=== PATIENT | female | born 1980 | race Hispanic/Latino ===

== ENCOUNTER 2017-07-04 11:01 | Inpatient (IN) | payer BC ==
[~2017-07-04] VITALS: Ht 152.4 cm; Wt 101.2 kg
[2017-07-17] MEDS ORDERED: PROMETHAZINE HCL 25 MG/ML 1ML AMPULE IM PRN (17:45)
[2017-07-17] MEDS ORDERED: NALOXONE HCL 0.4 MG/1 ML ML IV PRN (18:00)
[2017-07-17] MEDS ORDERED: LACTATED RINGERS 500 ML 500 ML IV PRN (18:00)
[2017-07-17] MEDS ORDERED: EPHEDRINE SULFATE 50 MG/ML AMPULE IVP PRN (18:00)
[2017-07-17] MEDS ORDERED: AMPICILLIN 2GM+NS 100ML 100 ML IV SCH (18:15)
[2017-07-17 18:23] LABS: HEMATOCRIT 37.2 % (36-48); MEAN CORPUSCULAR HEMOGLOBIN 27.2 pg (27.0-33.0); MEAN CORPUSCULAR HGB CONC 33.6 g/dL (32.0-36.0); MEAN CORPUSCULAR VOLUME 81.1 fL (79-99); PLATELET COUNT (AUTO) 285 K/uL (130-400); RED BLOOD CELL COUNT(AUTO) 4.59 MIL/uL (4.00-5.50); RED CELL DISTRIBUTION WIDTH 16.9 % (11.0-15.5); WHITE BLOOD COUNT (AUTO) 11.9 K/uL (4.8-10.8)
[2017-07-17 18:26] LABS: APPEARANCE,URINE Clear (CLEAR); BILIRUBIN,URINE Negative (NEGATIVE); COLOR,URINE Yellow (YELLOW); GLUCOSE, URINE (UA) Negative (NEGATIVE); KETONES,URINE Negative (NEGATIVE); LEUKOCYTE ESTERASE ,URINE Trace (NEGATIVE); NITRATE,URINE Negative (NEGATIVE); OCCULT BLOOD,URINE Negative (NEGATIVE); PH,URINE 6.5 (5.0-8.0); PROTEIN,URINE Negative (NEGATIVE)
[2017-07-17 18:48] LABS: BACTERIA,URINE Few /HPF (None Seen); RBC,URINE 0-1 /HPF (0-1)
[2017-07-17 18:49] LABS: MUCUS,URINE Rare LPF (None Seen); SQUAMOUS EPITHELIAL CELL,UR Few /HPF (0-2)
[2017-07-17] MEDS ORDERED: DINOPROSTONE 10 MG VAGINAL SUPP VG SCH (19:00)
[2017-07-17] MEDS: MISOPROSTOL 100 MCG TABLET VG PRN ×2 (19:57→23:35)
[2017-07-17] MEDS ORDERED: AMPICILLIN 1GM+NS 50ML 50 ML IV ONE (23:18)
[2017-07-17] MEDS: MEPERIDINE-PF 50 MG/ML SYG IVP PRN (23:35)
[2017-07-17] MEDS: LACTATED RINGERS 1000ML 1,000 ML IV PRN (23:36)
[2017-07-18] MEDS ORDERED: AMPICILLIN 1GM+NS 50ML 50 ML IV ONE ×2 (04:09→08:20)
[2017-07-18] MEDS ORDERED: OXYTOCIN 10 USP UNITS/ML ONE (05:53)
[2017-07-18] MEDS: LACTATED RINGERS 1000ML 1,000 ML IV PRN ×2 (06:24→23:50)
[2017-07-18] MEDS: OXYTOCIN 10 USP UNITS/ML 20 UNIT in LACTATED RINGERS 1000ML 1,000 ML IV SCH (06:24)
[2017-07-18] MEDS ORDERED: AMPICILLIN 1GM+NS 50ML 50 ML IV SCH (08:30)
[2017-07-18] MEDS ORDERED: INSULIN HUMULIN R 100 UNIT/ML 3ML SQ SCH (09:30)
[2017-07-18] MEDS: AMPICILLIN 1GM+NS 50ML 50 ML IV SCH ×4 (11:57→23:50)
[2017-07-18] MEDS ORDERED: DINOPROSTONE 10 MG VAGINAL SUPP EC SCH (18:30)
[2017-07-19] MEDS: AMPICILLIN 1GM+NS 50ML 50 ML IV SCH ×2 (03:52→08:07)
[2017-07-19] MEDS ORDERED: OXYTOCIN 10 USP UNITS/ML ONE ×2 (05:28→20:29)
[2017-07-19] MEDS ORDERED: LACTATED RINGERS 1000ML 1,000 ML IV ONE (05:28)
[2017-07-19] MEDS: LACTATED RINGERS 1000ML 1,000 ML IV PRN (06:17)
[2017-07-19] MEDS: OXYTOCIN 10 USP UNITS/ML 20 UNIT in LACTATED RINGERS 1000ML 1,000 ML IV SCH (06:26)
[2017-07-19 07:37] LABS: HEPATITIS Bs ANTIGEN SCREEN P Negative (Negative)
[2017-07-19] MEDS: DOCUSATE SODIUM 100 MG CAP PO SCH (08:18)
[2017-07-19] MEDS ORDERED: FENTANYL CITRATE PF 50 MCG/1 ML 2ML VIAL ONE (15:07)
[2017-07-19] MEDS ORDERED: CALDOLOR 800MG+NS 250ML 250 ML IV ONE (18:12)
[2017-07-19] MEDS ORDERED: CEFAZOLIN SODIUM 1 GM VIAL ONE (18:12)
[2017-07-19] MEDS ORDERED: METHYLERGONOVINE MALEATE 0.2 MG/1 ML ML ONE (18:24)
[2017-07-19] MEDS ORDERED: CEFAZOLIN SODIUM 1 GM VIAL IVP ONE (18:35)
[2017-07-19] MEDS ORDERED: METHYLERGONOVINE MALEATE 0.2 MG/1 ML ML IM ONE (18:55)
[2017-07-19] MEDS ORDERED: OXYTOCIN-LR 20 UNITS/1000 ML 1,000 ML IV PRN (19:35)
[2017-07-19] MEDS ORDERED: NALOXONE HCL 0.4 MG/1 ML ML IVP PRN ×3 (19:45→20:15)
[2017-07-19] MEDS ORDERED: PROMETHAZINE HCL 25 MG/ML 1ML AMPULE IM PRN ×2 (19:45→20:15)
[2017-07-19] MEDS ORDERED: MEPERIDINE 10MG/ML 50ML PCA 50 ML IV PRN (19:45)
[2017-07-19] MEDS ORDERED: BISACODYL 10 MG SUPP.RECT RC PRN (19:45)
[2017-07-19] MEDS ORDERED: DIPHENHYDRAMINE HCL 25 MG CAPSULE PO PRN (19:45)
[2017-07-19] MEDS: MEPERIDINE-PF 50 MG/ML SYG IVP PRN ×2 (20:03→20:59)
[2017-07-19] MEDS ORDERED: MORPHINE SULFATE 2 MG/ML 1ML SYG IVP PRN (20:15)
[2017-07-19] MEDS ORDERED: ONDANSETRON HCL 4 MG/2 ML 8 MG in SODIUM CHLORIDE 0.9% 50 ML IVP NR (20:15)
[2017-07-19] MEDS ORDERED: ROPIVACAINE 0.2%200ML EPIDURAL 200 ML EP SCH (20:15)
[2017-07-19] MEDS ORDERED: EPHEDRINE SULFATE 50 MG/ML AMPULE IVP PRN (20:15)
[2017-07-19] MEDS ORDERED: ONDANSETRON HCL MDV 20ML 2 MG/ML VIAL IVP PRN ×2 (20:15)
[2017-07-19] MEDS ORDERED: HYDROCODONE/ACETAMINOPHEN 5/325 MG TAB PO PRN ×2 (20:15)
[2017-07-19] MEDS ORDERED: DiphenhydrAMINE HCL 50 MG/ML VIAL IVP PRN (20:15)
[2017-07-19] MEDS ORDERED: METOCLOPRAMIDE 10 MG/2 ML VIAL IVP PRN (20:15)
[2017-07-19] MEDS: DEXTROSE 5 %-0.45 % NACL 1,000 ML IV PRN (21:03)
[2017-07-20] VITALS: BP 119/68
[2017-07-20] MEDS: AMPICILLIN 1GM+NS 50ML 50 ML IV SCH ×3 (00:30→20:30)
[2017-07-20] MEDS: CEFAZOLIN 3GM /D5W 100ML 100 ML IV SCH ×2 (02:10→11:08)
[2017-07-20 03:20] VITALS: BP 109/67
[2017-07-20] MEDS: CALDOLOR 800MG+NS 250ML 250 ML IV SCH ×2 (03:42→11:09)
[2017-07-20] MEDS ORDERED: PREN-66 PO (04:51)
[2017-07-20] MEDS ORDERED: GLYB2.5 PO (04:51)
[2017-07-20] MEDS: DEXTROSE 5 %-0.45 % NACL 1,000 ML IV PRN (06:32)
[2017-07-20 07:28] LABS: HEMATOCRIT 31.2 % (36-48); MEAN CORPUSCULAR HEMOGLOBIN 27.4 pg (27.0-33.0); MEAN CORPUSCULAR HGB CONC 33.2 g/dL (32.0-36.0); MEAN CORPUSCULAR VOLUME 82.6 fL (79-99); PLATELET COUNT (AUTO) 196 K/uL (130-400); RED BLOOD CELL COUNT(AUTO) 3.78 MIL/uL (4.00-5.50); RED CELL DISTRIBUTION WIDTH 16.7 % (11.0-15.5); WHITE BLOOD COUNT (AUTO) 14.2 K/uL (4.8-10.8)
[2017-07-20 07:40] VITALS: BP 104/58
[2017-07-20] MEDS: SIMETHICONE 80 MG TAB.CHEW PO PRN ×3 (08:18→20:11)
[2017-07-20] MEDS: LIDOCAINE 5% TOPICAL PATCH TP SCH (08:19)
[2017-07-20 11:46] VITALS: BP 110/68
[2017-07-20 15:40] VITALS: BP 98/68
[2017-07-20 19:26] VITALS: BP 105/61
[2017-07-20] MEDS: DOCUSATE SODIUM 100 MG CAP PO SCH ×2 (20:11→21:00)
[2017-07-20] MEDS: IBUPROFEN 800 MG TAB PO SCH (20:12)
[2017-07-21 00:15] VITALS: BP 111/71
[2017-07-21 03:08] VITALS: BP 93/50
[2017-07-21] MEDS: IBUPROFEN 800 MG TAB PO SCH ×3 (03:42→20:35)
[2017-07-21 07:54] VITALS: BP 111/64
[2017-07-21] MEDS: DOCUSATE SODIUM 100 MG CAP PO SCH ×2 (08:19→20:35)
[2017-07-21] MEDS: SIMETHICONE 80 MG TAB.CHEW PO PRN ×2 (08:19→15:58)
[2017-07-21] MEDS: LIDOCAINE 5% TOPICAL PATCH TP SCH (08:19)
[2017-07-21 11:25] VITALS: BP 127/86
[2017-07-21 16:00] VITALS: BP 116/74
[2017-07-21] MEDS: DIPH,PERTUSS(ACELL),TET VAC/PF 0.5 ML VIAL IM SCH (16:15)
[2017-07-21] MEDS ORDERED: DIPH,PERTUSS(ACELL),TET VAC/PF 0.5 ML VIAL IM ONE (16:18)
[2017-07-21 23:30] VITALS: BP 117/75
[2017-07-22 03:15] VITALS: BP 121/78
[2017-07-22] MEDS: IBUPROFEN 800 MG TAB PO SCH (04:18)
[2017-07-22 07:45] VITALS: BP 116/83
[2017-07-22] MEDS: LIDOCAINE 5% TOPICAL PATCH TP SCH (08:25)
[2017-07-22] MEDS: DOCUSATE SODIUM 100 MG CAP PO SCH (08:25)
[2017-07-22] MEDS: SIMETHICONE 80 MG TAB.CHEW PO PRN (08:25)
[2017-07-22] MEDS: DIPH,PERTUSS(ACELL),TET VAC/PF 0.5 ML VIAL IM SCH (10:21)
== END 2017-07-22 11:05 | disposition home or self-care (01) | DRG 765 ==
LOC: LDH 07-17 17:18 → OBSVTOIN 07-17 17:18 → LDH 07-18 11:34 → WSH 07-19 22:25
PROVIDERS: ADMIT Obstetrics & Gynecology; ATTEND Obstetrics & Gynecology
PROC: 3E0234Z Introduction of Serum, Toxoid and Vaccine into Muscle, Percutaneous Approach (ICD-10-PCS; 2017-07-19)
PROC: 10D00Z1 Extraction of Products of Conception, Low, Open Approach (ICD-10-PCS; principal; 2017-07-19 18:30)
DX: O76 Abnormality in fetal heart rate and rhythm complicating labor and delivery (principal); Z68.41 Body mass index [BMI] 40.0-44.9, adult; O99.214 Obesity complicating childbirth; E66.9 Obesity, unspecified; O24.429 Gestational diabetes mellitus in childbirth, unspecified control; O99.824 Streptococcus B carrier state complicating childbirth; O69.81X0 Labor and delivery complicated by cord around neck, without compression, not applicable or unspecified; Z3A.39 39 weeks gestation of pregnancy; Z37.0 Single live birth; Z23 Encounter for immunization
CPT/HCPCS: 36415; 59510; 76805; 81001; 82120; 82948; 85027; 86592; 86850; 86900; 86901; 87340; 90715; A4314; A4344; A4606; J0290; J0690; J1741; J2175; J2210; J2550; J2590; J3010; J7120